=== PATIENT | male | born 1930 | race Caucasian/White ===

== ENCOUNTER 2017-05-15 08:19 | Day surgery (SDC) | payer BC, MEDICARE, OTHER ==
[2017-05-13 09:08] VITALS: BMI 22.3
[~2017-05-15 08:19] MED LIST: LACTATED RINGERS 1,000 ML IV SCH
[2017-05-15 10:29] VITALS: RESP 16; TEMP 97.1
[2017-05-15] MEDS ORDERED: LIDOCAINE 1% 20 ML VIAL (10MG/ML) FOR IV START INTRADERMA ONE (10:39)
[2017-05-15] MEDS ORDERED: PROPOFOL 10 MG/ML 20 ML VIAL IV ONE (10:52)
--- NOTE | 2017-05-15 11:09 | P.PCN ---
Date of Procedure: 05/15/17 Preoperative Diagnosis: Postoperative Diagnosis: Procedure(s) Performed: BRIEF HISTORY: Patient is a 87-year-old, pleasant, white male, scheduled for an upper endoscopy as a part of evaluation of epigastric and periumbilical abdominal pain, on-and-off for the last several months duration. He has symptoms almost on a daily basis but denies any nausea or vomiting. He denies any recent weight loss. He was given a trial of Zantac for one month with no help. He is hence scheduled for an upper endoscopy to evaluate further. PROCEDURE PERFORMED: Esophagogastroduodenoscopy with biopsy. PREOPERATIVE DIAGNOSIS: Persistent epigastric and periumbilical abdominal pain of few months duration. IV sedation per anesthesia. PROCEDURE: After informed consent was obtained, the patient was brought into the endoscopy unit. IV sedation was administered by Anesthesia under continuous monitoring. Initially the Olympus GIF-140 video endoscope was inserted into the mouth. Esophagus intubated without any difficulty. It was gradually advanced into the stomach and duodenum and carefully examined. The bulb of the duodenum appeared normal. Despite multiple times I was not able to advance the scope into the second part of the duodenum because of acute angle duration this area. The scope was removed and a pediatric upper endoscopy was introduced into the mouth and esophagus intubated without any difficulty and was gradually advanced into the duodenal bulb. Despite applying abdominal pressure I was not able to advance the scope into the second part of the duodenum once again because of angle duration this area. No obvious stricture identified. The scope at this time was withdrawn to the stomach, adequately insufflated with air, and upon careful examination, mucosa of the antrum, body, had mild diffuse gastritis and biopsies were done from this area. The cardia and the fundus appeared normal. The scope was then withdrawn into the esophagus. Small hiatal hernia noted. The GE junction was located at 37 cm from the incisors. The esophagus appeared normal. Biopsies were done from the distal esophagus. There were no erosions or ulcerations seen and the patient tolerated the procedure well. IMPRESSION: 1. Mild diffuse gastritis. 2. And hiatal hernia but no evidence of esophagitis. RECOMMENDATIONS: The findings of this examination were discussed with the patient as well as his family. He was advised to follow with the biopsy results. Implants: Indications for Procedure: Operative Findings: Description of Procedure:
[2017-05-15 11:36] VITALS: PULSE 50
[2017-05-15 11:52] VITALS: BP 104/70
== END 2017-05-15 11:58 | disposition home or self-care (01) ==
LOC: ORWHC2ENDO 08:19
PROVIDERS: ATTEND Internal Medicine Gastroenterology
DX: K29.50 Unspecified chronic gastritis without bleeding (principal); K21.0 Gastro-esophageal reflux disease with esophagitis; K44.9 Diaphragmatic hernia without obstruction or gangrene; I10 Essential (primary) hypertension; E78.5 Hyperlipidemia, unspecified; F39 Unspecified mood [affective] disorder; Z79.891 Long term (current) use of opiate analgesic; Z79.899 Other long term (current) drug therapy; Z87.891 Personal history of nicotine dependence
CPT/HCPCS: 88305; 88342; 43239; J2704

== ENCOUNTER 2017-09-19 12:08 | Emergency (ER) | payer MEDICARE ==
--- NOTE | 2017-09-19 13:30 | ED ---
General Adult HPI - General Chief complaint: Fall Stated complaint: Fall Time Seen by Provider: 09/19/17 12:50 Source: patient, RN notes reviewed Mode of arrival: wheelchair Limitations: no limitations - History of Present Illness Initial comments: 87-year-old male presents emergency Department with chief complaint of fall. Patient was at the grocery store and he lsot his balance in the parking lot and fell. Patient denies any lightheadedness or dizziness before the fall. Patient states he did hit his head and he does believe he passed out. Patient states he's continued to have right hip pain following this left hand pain and he's noticed some swelling and bruising to his left eye. Patient denies any use of blood thinners. Patient denies any headache any nausea vomiting. Patient denies any neck pain. There is concern due to the hip pain as well as swelling around left eye so they thought that he should be evaluated. Patient denies any recent fever, chills, shortness of breath, chest pain, back pain, abdominal pain, nausea vomiting, numbness or tingling, dysuria or hematuria, constipation or diarrhea, headaches or visual changes, or any other current symptoms. - Related Data Home Medications Medication Instructions Recorded Confirmed Acetaminophen-Codeine 300-30mg 1 tab PO Q6H PRN 01/02/16 09/19/17 [Tylenol #3] Mirtazapine [Remeron] 15 mg PO HS 09/19/17 09/19/17 Allergies Allergy/AdvReac Type Severity Reaction Status Date / Time No Known Allergies Allergy Verified 09/19/17 12:26 Review of Systems ROS Statement: Those systems with pertinent positive or pertinent negative responses have been documented in the HPI. ROS Other: All systems not noted in ROS Statement are negative. Past Medical History Past Medical History: Cancer, Hyperlipidemia, Hypertension, Prostate Disorder Additional Past Medical History / Comment(s): Paget's Disease. HX DIVERTICULITIS. SKIN CA. POOR APPETITE, ABD PAIN, DIARRHEA, WGT LOSS 6-8 WKS. History of Any Multi-Drug Resistant Organisms: None Reported Past Surgical History: Orthopedic Surgery, Prostate Surgery Additional Past Surgical History / Comment(s): ALVARO LOWER LEG RODS PLACED. COLONOSCOPY. Past Anesthesia/Blood Transfusion Reactions: No Reported Reaction Past Psychological History: Anxiety Smoking Status: Former smoker Past Alcohol Use History: None Reported Past Drug Use History: None Reported - Past Family History Mother Family Medical History: Cancer Sister(s) Family Medical History: Cancer General Exam Limitations: no limitations General appearance: alert, in no apparent distress Head exam: Present: normal inspection, other (left eye swelling over left eye with hematoma and some superficial lacerations noted.) Eye exam: Present: normal appearance, PERRL, EOMI, periorbital swelling (right eye). Absent: scleral icterus, conjunctival injection ENT exam: Present: normal exam, mucous membranes moist Neck exam: Present: normal inspection. Absent: tenderness, meningismus, lymphadenopathy Respiratory exam: Present: normal lung sounds bilaterally. Absent: respiratory distress, wheezes, rales, rhonchi, stridor Cardiovascular Exam: Present: regular rate, normal rhythm, normal heart sounds. Absent: systolic murmur, diastolic murmur, rubs, gallop, clicks Extremities exam: Present: normal inspection, full ROM, tenderness (Mildly tender to the left hand), normal capillary refill. Absent: pedal edema, joint swelling, calf tenderness Neurological exam: Present: alert, oriented X3 Psychiatric exam: Present: normal affect, normal mood Skin exam: Present: warm, dry, intact, normal color. Absent: rash Course Vital Signs 09/19/17 09/19/17 12:15 14:08 Temperature 97.0 F L 97.2 F L Pulse Rate 68 67 Respiratory 18 16 Rate Blood Pressure 151/88 142/78 O2 Sat by Pulse 96 94 L Oximetry - Reevaluation(s) Reevaluation #1: 09/19/17 15:10 Patient has developed a headache. At this time pain medication was given. Medical Decision Making - Medical Decision Making 87-year-old male presents for fall with head injury. At this time patient's CAT scan has been reviewed. At this time patient does have extensive orbital fractures. Due to head injury with loss of consciousness as well we will transfer [facility] for continued evaluation. This was discussed with the patient and family's on agreement this plan all questions have been answered. This time patient will be transferred. Dr. Hanks agrees with the transfer and does except. - Radiology Data Radiology results: report reviewed, image reviewed Disposition Clinical Impression: Fall, Left orbit fracture, Concussion with loss of consciousness, Contusion of right hip, Contusion of left hand Disposition: OTHER INSTITUTION NOT DEFINED Condition: Stable Referrals: Posadas,Asif, MD [Primary Care Provider] - 1-2 days - Out of Hospital Transfer - Req. Specs Out of Hospital Transfer - Requested Specifics: Other Emergency Center ([facility])
--- NOTE | 2017-09-19 13:49 | CT ---
EXAMINATION TYPE: CT brain cspine wo con, CT facial bones wo con DATE OF EXAM: 09/19/2017 COMPARISON: CT brain 06/27/2015 HISTORY: Fall, pain and swelling, open wound to Lt eye CT DLP: 1640.33 (accession [id number]), 497.92 (accession [id number]) mGycm Automated exposure control for dose reduction was used. TECHNIQUE: CT scan of the head, facial bones and cervical spine are performed without contrast. FINDINGS: There is no acute intracranial hemorrhage, mass effect, or midline shift identified. The ventricles and sulci are within normal limits in size. There is cephalohematoma over the left front al region. Depressed comminuted left frontal bone fractures are present extending into the orbital ro of, comminuted fragment present within the superior orbit on the left comes in close proximity to sup erior aspect of the globe, superior rectus muscle, there is some local hemorrhage present within the orbit. There is inflammatory change extending to the ostiomeatal unit on the left, bilateral maxillar y sinus fluid is present, the ostiomeatal unit on the right is patent.. Periventricular white matter shows low attenuation as on previous exam. Cervical spine is visualized in its entirety from C1 through upper thoracic levels and demonstrates s atisfactory alignment without evidence of acute fracture or dislocation. Prevertebral soft tissue ap pears within normal limits. There is multilevel spondylosis. Loss of disc height present at intervert ebral levels. Multilevel facet arthropathy and foraminal encroachment. Vascular calcifications are no [place] centrally. The C1-C2 articulation is unremarkable. IMPRESSION: 1. There is no acute fracture or dislocation evident in the cervical spine. 2. No acute intracranial hemorrhage, mass effect, or midline shift is seen. 3. Left frontal bone depressed fracture, orbital fractures at the orbital roof. Case discussed with Vitaliy Clement personally
--- NOTE | 2017-09-19 14:01 | XR ---
EXAMINATION TYPE: XR hand complete LT DATE OF EXAM: 09/19/2017 CLINICAL HISTORY: Fall injury with pain. TECHNIQUE: Frontal, lateral and oblique images of the left hand are obtained. COMPARISON: None. FINDINGS: Osseous structures are demineralized. There is no acute fracture or dislocation in the left hand. There is marked joint space loss radiocarpal articulation with mass effect or bone indentation in the distal radius. Scapholunate ligament tear is present and is proximal portions do not align. T here is proximal positioning of capitate relative to distal carpal row. There is mild to moderate shanti nt space loss and spurring throughout the phalanges. There is marked joint space loss fifth PIP joint . Overlying soft tissue is unremarkable. Lateral view is suboptimal due to demineralization to assess for lunate capitate relationship. IMPRESSION: There is no acute fracture or dislocation in the left hand. Demineralization and degener ative changes. 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 Correlate clinically.
--- NOTE | 2017-09-19 14:34 | XR ---
Right femur HISTORY: Trauma and pain, Paget's disease 2 views of the right femur on 4 images correlated to pelvis same date, left hip 10/30/2016 Coarsened trabecular pattern, coxa vera, postop changes noted. There is no acute fracture or dislocat ion. IMPRESSION: Findings compatible with patient's history of Paget's disease. No acute fracture or dislo cation.
--- NOTE | 2017-09-19 14:36 | XR ---
AP pelvis HISTORY: Trauma and pain Single frontal view of the pelvis correlated to right femur same date Findings of Paget's disease are noted within the bone, there is cortical thickening, coarsened trabec ular pattern. Lucencies present along the shafts of the femurs noted bilaterally appear chronic. Ther e may be avulsion hamstring musculature on the right with calcifications noted which also appear dictaphone operator uyen. Degenerative changes suspected within the lower lumbar spine. 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 IMPRESSION: Findings compatible with patient's history of Paget's disease. No acute fracture or dislo cation.
[2017-09-19] MEDS ORDERED: cefTRIAXone IN SWFI 1,000 MG/10 ML SYRINGE IVP ONE (15:00)
[2017-09-19] MEDS ORDERED: AMPICILLIN-SULBACTAM 3 GM in SODIUM CHLORIDE 0.9% 100 ML IVPB STA (15:03)
[2017-09-19] MEDS ORDERED: HYDROmorphone 1 MG/ML 1 ML SYRINGE IVP STA (15:03)
[2017-09-19 15:46] VITALS: BP 149/77; PULSE 77; RESP 18; TEMP 98.2
[2017-09-19 16:01] LABS: Basophils % (A) 1 %; CH 30.1; CHCM 32.3; Eosinophils # (A) 0.1 k/uL (0-0.7); Eosinophils % (A) 1 %; HCT 46.5 % (39.0-53.0); HDW 2.33; HGB 15.1 gm/dL (13.0-17.5); Luc # (Auto) 0.15; Luc % (Auto) 2; Lymphocytes # (A) 1.6 k/uL (1.0-4.8); Lymphocytes % (A) 16 %; MCH 30.4 pg (25.0-35.0); MCHC 32.4 g/dL (31.0-37.0); MCV 93.7 fL (80.0-100.0); Mean Platelet Volume 7.4; Monocytes # (A) 0.5 k/uL (0-1.0); Monocytes % (A) 5 %; Neutrophils # (A) 7.2 k/uL (1.3-7.7); Neutrophils % (A) 76 %; RBC 4.96 m/uL (4.30-5.90); RDW 14.2 % (11.5-15.5); WBC 9.6 k/uL (3.8-10.6); WBC (Perox) 9.52
[2017-09-19 16:02] LABS: ALT 33 U/L (21-72); AST 35 U/L (17-59); Alkaline Phosphatase 221 U/L (38-126); Anion Gap 9 mmol/L; Blood Urea Nitrogen 14 mg/dL (9-20); Carbon Dioxide 28 mmol/L (22-30); Chloride 104 mmol/L (98-107); Glucose 99 mg/dL (74-99); Non-African American GFR(MDRD) >60 (>60 ml/min/1.73 sqM); Potassium 4.2 mmol/L (3.5-5.1); Sodium 141 mmol/L (137-145); Total Bilirubin 0.6 mg/dL (0.2-1.3)
[2017-09-19 16:04] LABS: Partial Thromboplastin Time 24.8 sec (22.0-30.0); Prothrombin Time 10.5 sec (9.0-12.0)
== END 2017-09-19 16:12 | disposition short-term general hospital (02) ==
LOC: EC 12:08
DX: S06.0X9A Concussion with loss of consciousness of unspecified duration, initial encounter (principal); S02.82XA Fracture of other specified skull and facial bones, left side, initial encounter for closed fracture; S01.112A Laceration without foreign body of left eyelid and periocular area, initial encounter; S70.01XA Contusion of right hip, initial encounter; S60.222A Contusion of left hand, initial encounter; Z85.828 Personal history of other malignant neoplasm of skin; Z87.891 Personal history of nicotine dependence; Z79.899 Other long term (current) drug therapy; W01.198A Fall on same level from slipping, tripping and stumbling with subsequent striking against other object, initial encounter; Y92.481 Parking lot as the place of occurrence of the external cause
CPT/HCPCS: 36415; 80053; 85025; 85610; 85730; 72170; 73552; 73130; 72125; 70486; 70450; 99285; 96365; 96375; J1170; J0295

== ENCOUNTER 2019-10-25 08:22 | Inpatient (IN) | payer MEDICARE, OTHER ==
[2019-10-25] MEDS ORDERED: DIPH,PERTUS(ACELL)TETVAC-LF 0.5 ML VIAL IM ONE (08:43)
--- NOTE | 2019-10-25 08:45 | ED ---
General Adult HPI - General Chief complaint: Fall Stated complaint: FALL Time Seen by Provider: 10/25/19 08:24 Source: EMS Mode of arrival: EMS Limitations: physical limitation - History of Present Illness Initial comments: Dictation was produced using [employer] dictation software. please excuse any grammatical, word or spelling errors. Chief Complaint: 89-year-old male presents after fall. History of Present Illness: Patient is an 89-year-old male. He is a resident at [facility]. Patient accidentally rolled out of bed fell to the ground. Patient states he hit his head slightly on the way down. His main complaint today is right elbow pain. Patient denies being on any blood thinners. Patient denies any head pain or neck pain. Denies any chest pain or extremity pain. Patient does not know when his last tetanus shot was. The ROS documented in this emergency department record has been reviewed and confirmed by me. Those systems with pertinent positive or negative responses have been documented in the HPI. All other systems are other negative and/or noncontributory. PHYSICAL EXAM: General Impression: Alert and oriented x3, not in acute distress HEENT: Normocephalic atraumatic, extra-ocular movements intact, pupils equal and reactive to light bilaterally, mucous membranes moist. Cardiovascular: Heart regular rate and rhythm, S1&S2 audible, no murmurs, rubs or gallops Chest: Lungs clear to auscultation bilaterally, no rhonchi, no wheeze, no rales Abdomen: Bowel sounds present, abdomen soft, non-tender, non-distended, no organomegaly Musculoskeletal: Pulses present and equal in all extremities, no peripheral edema, all joints ranged with no complications. Small superficial abrasion to the posterior right elbow. No shortening extremity, minimal tenderness to the right hip Motor: no focal deficits noted Neurological: CN II-XII grossly intact, no focal motor or sensory deficits noted Skin: Intact with no visualized rashes Psych: Normal affect and mood ED course: 89-year-old male presents after fall. Signs upon arrival are within acceptable limits. Well-appearing on physical examination. No signs of serious traumatic injury.Laboratory evaluation obtained. CBC, coag panel, metabolic panel is unremarkable. Medications were reviewed. Patient is not on any blood thinners. Imaging studies were obtained. Elbow x-ray chest x-ray pelvis x-ray is unremarkable. Pelvis x-ray shows acute nondisplaced fractures of the superior pubic rami bilaterally. Patient denies any pain at rest however when flexing the right hip patient has some pain. Patient is normally ambulatory. Given patient's degree of symptoms we will have patient admitted for orthopedic surgery evaluation. Discussed patient case with chani bejarano. Melissa reviewed patient's case and agrees to take over patient's care. Medicine consulted. Physical therapy consult it. EKG interpretation: Ventricular rate 70, normal sinus rhythm, VA interval 150, QS 92, QTc 4:30. No VA prolongation, no QTC prolongation, no ST or T-wave changes noted. No old EKG for comparison. Overall, this EKG is unremarkable - Related Data Home Medications Medication Instructions Recorded Confirmed Acetaminophen-Codeine 300-30mg 2 tab PO BID PRN 01/02/16 10/25/19 [Tylenol #3] Mirtazapine [Remeron] 15 mg PO HS 09/19/17 10/25/19 Lisinopril [Zestril] 10 mg PO BID 10/25/19 10/25/19 Allergies Allergy/AdvReac Type Severity Reaction Status Date / Time No Known Allergies Allergy Verified 10/25/19 10:16 Review of Systems ROS Statement: Those systems with pertinent positive or pertinent negative responses have been documented in the HPI. ROS Other: All systems not noted in ROS Statement are negative. Past Medical History Past Medical History: Cancer, Hyperlipidemia, Hypertension, Prostate Disorder Additional Past Medical History / Comment(s): Paget's Disease. HX DIVERTICULITIS. SKIN CA. POOR APPETITE, ABD PAIN, DIARRHEA, WGT LOSS 6-8 WKS. History of Any Multi-Drug Resistant Organisms: None Reported Past Surgical History: Orthopedic Surgery, Prostate Surgery Additional Past Surgical History / Comment(s): ALVARO LOWER LEG RODS PLACED. COLONOSCOPY. Past Anesthesia/Blood Transfusion Reactions: No Reported Reaction Past Psychological History: Anxiety Smoking Status: Former smoker Past Alcohol Use History: None Reported Past Drug Use History: None Reported - Past Family History Mother Family Medical History: Cancer Sister(s) Family Medical History: Cancer General Exam Limitations: physical limitation Course Vital Signs 10/25/19 10/25/19 08:23 09:19 Temperature 98.0 F Pulse Rate 88 76 Respiratory 16 16 Rate Blood Pressure 159/101 142/67 O2 Sat by Pulse 99 99 Oximetry Medical Decision Making - Lab Data Result diagrams: 10/25/19 08:39 10/25/19 08:39 Lab Results 10/25/19 10/25/19 10/25/19 Range/Units 08:39 08:39 08:39 WBC 9.6 (3.8-10.6) k/uL RBC 4.55 (4.30-5.90) m/uL Hgb 13.8 (13.0-17.5) gm/dL Hct 42.2 (39.0-53.0) % MCV 92.8 (80.0-100.0) fL MCH 30.3 (25.0-35.0) pg MCHC 32.7 (31.0-37.0) g/dL RDW 13.1 (11.5-15.5) % Plt Count 266 (150-450) k/uL Neutrophils % 53 % Lymphocytes % 31 % Monocytes % 7 % Eosinophils % 6 % Basophils % 0 % Neutrophils # 5.1 (1.3-7.7) k/uL Lymphocytes # 3.0 (1.0-4.8) k/uL Monocytes # 0.7 (0-1.0) k/uL Eosinophils # 0.5 (0-0.7) k/uL Basophils # 0.0 (0-0.2) k/uL PT 9.8 (9.0-12.0) sec INR 0.9 (<1.2) APTT 24.3 (22.0-30.0) sec Sodium 141 (137-145) mmol/L Potassium 4.4 (3.5-5.1) mmol/L Chloride 107 (98-107) mmol/L Carbon Dioxide 26 (22-30) mmol/L Anion Gap 8 mmol/L BUN 20 (9-20) mg/dL Creatinine 0.91 (0.66-1.25) mg/dL Est GFR (CKD-EPI)AfAm 87 (>60 ml/min/1.73 sqM) Est GFR (CKD-EPI)NonAf 75 (>60 ml/min/1.73 sqM) Glucose 118 H (74-99) mg/dL Calcium 10.2 (8.4-10.2) mg/dL Total Bilirubin 0.6 (0.2-1.3) mg/dL AST 39 (17-59) U/L ALT 21 (4-49) U/L Alkaline Phosphatase 267 H (38-126) U/L Total Protein 7.8 (6.3-8.2) g/dL Albumin 4.2 (3.5-5.0) g/dL Disposition Clinical Impression: Fall, Pelvic fracture Disposition: ADMITTED IP TO THIS [facility] Condition: Fair Referrals: Asif Posadas MD [Primary Care Provider] - 1-2 days Decision Time: 10:18
[2019-10-25 08:50] LABS: Basophils % (A) 0 %; Eosinophils # (A) 0.5 k/uL (0-0.7); Eosinophils % (A) 6 %; HCT 42.2 % (39.0-53.0); HGB 13.8 gm/dL (13.0-17.5); Lymphocytes % (A) 31 %; MCH 30.3 pg (25.0-35.0); MCHC 32.7 g/dL (31.0-37.0); MCV 92.8 fL (80.0-100.0); Mean Platelet Volume 7.5; Monocytes # (A) 0.7 k/uL (0-1.0); Monocytes % (A) 7 %; Neutrophils # (A) 5.1 k/uL (1.3-7.7); Neutrophils % (A) 53 %; Platelet Count 266 k/uL (150-450); RBC 4.55 m/uL (4.30-5.90); RDW 13.1 % (11.5-15.5); WBC 9.6 k/uL (3.8-10.6)
[2019-10-25 08:58] LABS: INR 0.9 (<1.2); Partial Thromboplastin Time 24.3 sec (22.0-30.0); Prothrombin Time 9.8 sec (9.0-12.0)
[2019-10-25 09:14] LABS: Albumin 4.2 g/dL (3.5-5.0); Calcium 10.2 mg/dL (8.4-10.2); Potassium 4.4 mmol/L (3.5-5.1); Total Bilirubin 0.6 mg/dL (0.2-1.3); Total Protein 7.8 g/dL (6.3-8.2)
--- NOTE | 2019-10-25 09:36 | CT ---
EXAMINATION TYPE: CT brain matildeine wo con DATE OF EXAM: 10/25/2019 COMPARISON: Previous study dated 09/19/2017. HISTORY: Fall CT DLP: 1234.9 mGycm Automated exposure control for dose reduction was used. TECHNIQUE: CT scan of the head and cervical spine are performed without contrast. FINDINGS: BRAIN: There are generalized changes of sulcal prominence and ventriculomegaly, compatible with atrop hic change. There is diffuse periventricular white matter lucency, compatible with small vessel ische eliecer change. No acute focal lesion, mass effect or midline shift is seen. I do not see evidence of int racranial blood. There is mucoperiosteal thickening involving the ethmoid sinuses bilaterally. The mastoids are clear. The bony calvarium is intact. IMPRESSION: 1. NO ACUTE INTRACRANIAL ABNORMALITY. 2. MODERATE DEGENERATIVE CHANGE. 3. CHRONIC ETHMOIDAL SINUS MUCOSAL DISEASE. CERVICAL SPINE: Visualized portions of the lungs are clear. Prevertebral soft tissues are normal. Vertebral body height and alignment are maintained. Atlantoaxial relationships are normal. There is d iffuse degenerative disc disease, hypertrophic spondylosis and uncovertebral joint disease with relat radha sparing C2-3 and C3-4. There is facet arthropathy bilaterally at C2-3, C3-4 and C4-5. No definite protrusion is seen. There is a mildly displaced fracture of the left second rib laterally. No other acute rib fractures are seen. No spinal fracture is seen. IMPRESSION: 1. MINIMALLY DISPLACED FRACTURE OF THE LEFT SECOND RIB LATERALLY. 2. NO OTHER FRACTURE OF THE CERVICAL SPINE. 3. DEGENERATIVE CHANGE. This report was phoned to Dr. Mccullough in the ER at time of reporting.
--- NOTE | 2019-10-25 09:39 | XR ---
EXAMINATION TYPE: XR pelvis AP view , 2 VIEWS DATE OF EXAM ORDERED: 10/25/2019 HISTORY: fall. COMPARISON: None. FINDINGS: There is been intramedullary rolando fixation of both femurs. There is evidence of Paget's dis ease bilaterally worse on the left than the right. There is a minimally displaced fracture of the sup erior pubic ramus on the right. A second fracture is noted through the superior pubic ramus on the le ft. No definite additional fractures are seen. IMPRESSION: 1. ACUTE, NONDISPLACED FRACTURES OF THE SUPERIOR PUBIC RAMI BILATERALLY. 2. EVIDENCE OF PAGETOID CHANGE. 3. POSTSURGICAL CHANGE. CODE A: INITIAL ENCOUNTER FOR CLOSED FRACTURE.
--- NOTE | 2019-10-25 09:43 | XR ---
EXAMINATION TYPE: XR chest 1V portable DATE OF EXAM: 10/25/2019 HISTORY: fall. REFERENCE: NONE. FINDINGS: Lung volumes are prominent. Heart size upper limits of normal. The lungs are clear. Pleural spaces are clear. IMPRESSION: 1. MILD CARDIOMEGALY. 2. PLEASE CORRELATE FOR COPD.
--- NOTE | 2019-10-25 09:44 | XR ---
EXAMINATION TYPE: XR elbow complete RT , 3 VIEWS DATE OF EXAM ORDERED: 10/25/2019 HISTORY: fall. COMPARISON: None. FINDINGS: No fracture, dislocation or elbow joint effusion is seen. There is a prominent olecranon s pur. IMPRESSION: NO ACUTE OSSEOUS LESION.
[2019-10-25] MEDS ORDERED: ONDANSETRON 4 MG/2 ML VIAL IVP PRN (10:15)
[2019-10-25] MEDS ORDERED: NALOXONE 0.4 MG/ML 1 ML VIAL IV PRN (10:15)
[2019-10-25] MEDS: KETOROLAC 30 MG/ML 1 ML VIAL IVP PRN ×2 (10:30→16:14)
[2019-10-25] MEDS: SODIUM CHLORIDE 0.9% 1,000 ML IV SCH ×2 (10:30→13:50)
[2019-10-25] MEDS: ACETAMINOPHEN TAB 325 MG TAB PO PRN (11:29)
--- NOTE | 2019-10-25 16:15 | P.HPOR ---
History of Present Illness H&P Date: 10/25/19 Chief Complaint: Bilateral superior pubic rami fracture Patient is an 89-year-old male who was brought to [facility] today after falling out of bed. Patient does state at [facility] full-time, he has a home care agency that spends about 4 hours a day with him. Patient is rather independent, he utilizes a walker with ambulation. Upon arrival to the hospital today, imaging and lab tests were done. Images demonstrated bilateral superior pubic rami fracture. It also demonstrated previous hardware in the bilateral femurs. Patient did hit his head during the fall, computed tomography scan was negative. At bedside patient states he has no other orthopedic complaints besides some low back pain. He notes most of discomfort when ambulating. Currently denies any chest pain, shortness of breath, fever or chills, abdominal discomfort, loss of bowel or bladder, lower extremity paresthesias. Review of Systems Constitutional: Reports as per HPI Past Medical History Past Medical History: Cancer, Hyperlipidemia, Hypertension, Prostate Disorder Additional Past Medical History / Comment(s): Paget's Disease. HX DIVERTICULITIS. SKIN CA. Fell in parking lot and had hit head, in [employer] for 30days two years ago. History of Any Multi-Drug Resistant Organisms: None Reported Past Surgical History: Orthopedic Surgery, Prostate Surgery Additional Past Surgical History / Comment(s): ALVARO LOWER LEG RODS PLACED. COLONOSCOPY. Past Anesthesia/Blood Transfusion Reactions: No Reported Reaction Past Psychological History: Anxiety Smoking Status: Former smoker Past Alcohol Use History: None Reported Additional Past Alcohol Use History / Comment(s): SMOKED 20 YEARS EST, MANY YEARS AGO, LATER SMOKED PIPE Past Drug Use History: None Reported - Past Family History Mother Family Medical History: Cancer Sister(s) Family Medical History: Cancer Medications and Allergies Home Medications Medication Instructions Recorded Confirmed Type Acetaminophen-Codeine 300-30mg 2 tab PO BID PRN 01/02/16 10/25/19 History [Tylenol #3] Mirtazapine [Remeron] 15 mg PO HS 09/19/17 10/25/19 History Lisinopril [Zestril] 10 mg PO BID 10/25/19 10/25/19 History Allergies Allergy/AdvReac Type Severity Reaction Status Date / Time No Known Allergies Allergy Verified 10/25/19 10:16 Physical Examination Lower extremity: No obvious open sores or lesions present throughout the extremities, bilateral surgical incisions noted on the lateral aspect of the upper legs are well-healed No significant areas of soft tissue swelling or erythema Logroll maneuver the bilateral legs reproduces minimal discomfort No tenderness with palpation throughout the knees, his range of motion is intact both passively and actively Plantar flexion, dorsiflexion, EHL, FHL are intact bilaterally Sensory exam to light touch throughout his extremities is intact, dorsal pedis pulse bilaterally is 2+ Palpation of the lower lumbar spine there is some tenderness over the spinous processes some paravertebral muscles, no obvious step-off is appreciated. No skin changes noted throughout the lower back Results - Labs Labs: Abnormal Lab Results - Last 24 Hours (Table) 10/25/19 Range/Units 08:39 Glucose 118 H (74-99) mg/dL Alkaline Phosphatase 267 H (38-126) U/L H & H 10/25/19 Range/Units 08:39 Hgb 13.8 (13.0-17.5) gm/dL Hct 42.2 (39.0-53.0) % Coagulation 10/25/19 Range/Units 08:39 INR 0.9 (<1.2) Result Diagrams: 10/25/19 08:39 10/25/19 08:39 Assessment and Plan Plan: Imaging: X-rays of the pelvis demonstrates a nondisplaced bilateral superior pubic rami fractures. Evidence of previous hardware involving the bilateral hips, it appears stable. Elbow x-rays were negative for any acute fractures or dislocations. I did order a series of lumbar x-rays to be done, awaiting results Assessment: 1. Bilateral nondisplaced superior pubic rami fractures 2. Status post fall from bed 3. Other medical comorbidities Plan: I was able to discuss the case, including both physical exam findings and imaging studies my attending Dr. Romeo. Recommend conservative management at this time, no surgical intervention. Weight-bear as tolerated, utilize walker at all times Physical therapy evaluation to include walker ambulation X-rays have been ordered of the lumbar spine Pain control, low-dose or medication as needed GI and DVT prophylaxis per medical recommendation Medical recommendations Patient may need rehab placement, considering home physical therapy and 24-hour care if he can return to [facility]. We'll discuss this with social work and case management tomorrow. Time with Patient: Less than 30
[2019-10-25] MEDS: traMADol 50 MG TAB PO SCH ×2 (17:05→21:53)
--- NOTE | 2019-10-25 17:26 | XR ---
EXAMINATION TYPE: XR lumbar spine 2 or 3V DATE OF EXAM: 10/25/2019 COMPARISON: NONE HISTORY: Low back pain TECHNIQUE: 4 views FINDINGS: There is osteopenia. There is minimal anterior subluxation of L5 in relation S1 of 5 mm. Th ere is biconcave deformity of L3. This mild loss of height of L3 and L5 up to 20%. There is also slig ht anterior wedging of L1 10%. Posterior elements are intact. Sacroiliac joints are intact. IMPRESSION: Multiple mild compression fractures. Compression fractures appear not significantly diffe rent than old CT scan of 01/02/2016. No definite acute fracture.
--- NOTE | 2019-10-25 17:27 | P.CONS ---
History of Present Illness - Reason for Consult Consult date: 10/25/19 medical management Requesting physician: Marcos Mackay - Chief Complaint hip pain - History of Present Illness 89-year-old male with PMH of hypertension, dyslipidemia, Paget's disease presents the ED after mechanical fall. Patient states that he rolled off his bed. He denies any loss of consciousness. Patient does report hitting his head during the fall. Patient states that he lives at [facility] full-time with caregivers that attend to him 4 hours a day.[facility] has been consulted for medical management of this patient.in the ED, he underwent extensive evaluation. CT head was negative. Pelvic x-ray showed bilateral rami fractures. Patient reports no current pain. He denies any headache, lower extremity edema, nausea or vomiting, fever chills, cough, chest pain, shortness of breath, palpitations, changes in urination or bowel habits. No changes in appetite or weight. Patient denies any dizziness, numbness/weakness/tingling of the extremities. Review of Systems Pertinent positives and negatives as discussed in HPI, a complete review of systems was performed and all other systems are negative. Past Medical History Past Medical History: Cancer, Hyperlipidemia, Hypertension, Prostate Disorder Additional Past Medical History / Comment(s): Paget's Disease. HX DIVERTICULITIS. SKIN CA. Fell in parking lot and had hit head, in [employer] for 30days two years ago. History of Any Multi-Drug Resistant Organisms: None Reported Past Surgical History: Orthopedic Surgery, Prostate Surgery Additional Past Surgical History / Comment(s): ALVARO LOWER LEG RODS PLACED. COLONOSCOPY. Past Anesthesia/Blood Transfusion Reactions: No Reported Reaction Past Psychological History: Anxiety Smoking Status: Former smoker Past Alcohol Use History: None Reported Additional Past Alcohol Use History / Comment(s): SMOKED 20 YEARS EST, MANY YEARS AGO, LATER SMOKED PIPE Past Drug Use History: None Reported - Past Family History Mother Family Medical History: Cancer Sister(s) Family Medical History: Cancer Medications and Allergies Home Medications Medication Instructions Recorded Confirmed Type Acetaminophen-Codeine 300-30mg 2 tab PO BID PRN 01/02/16 10/25/19 History [Tylenol #3] Mirtazapine [Remeron] 15 mg PO HS 09/19/17 10/25/19 History Lisinopril [Zestril] 10 mg PO BID 10/25/19 10/25/19 History Allergies Allergy/AdvReac Type Severity Reaction Status Date / Time No Known Allergies Allergy Verified 10/25/19 10:16 Physical Exam Vitals: Vital Signs Temp Pulse Pulse Resp BP BP Pulse Ox 10/25/19 13:53 97.7 F 82 16 132/85 92 L 10/25/19 11:08 98.1 F 74 16 152/89 93 L 10/25/19 10:32 76 16 153/86 99 10/25/19 09:19 76 16 142/67 99 10/25/19 08:23 98.0 F 88 16 159/101 99 Intake and Output 10/25/19 10/25/19 10/25/19 06:59 14:59 22:59 Intake Total 800 860 Output Total 250 Balance 800 610 Intake: Oral 800 860 Output: Urine 250 Other: Voiding Method Urinal # Voids 1 Weight 68.039 kg General: [non toxic], [no distress], [appears at stated age] Derm: [warm], [dry] Head: [atraumatic], [normocephalic], [symmetric] Eyes: [EOMI], [no lid lag], [anicteric sclera] Mouth: [no lip lesion], [mucus membranes moist] Cardiovascular: [S1S2 reg], [no murmur], [positive DP pulse bilateral], Lungs: [decreased breath sounds bilateral], [no rhonchi, no rales] , [no accessory muscle use] Abdominal: [soft], [ nontender to palpation], [no guarding], [no appreciable organomegaly] Ext: [no gross muscle atrophy], [no edema], [no contractures], [limited range of motion of bilateral hips due to pain] Neuro: [ CN II-XI grossly intact], [lower extremity 4 out of 5 strength bilaterally with sensation intact to touch] Psych: [Alert], [oriented], [appropriate affect] Results CBC & Chem 7: 10/25/19 08:39 10/25/19 08:39 Labs: Abnormal Lab Results - Last 24 Hours (Table) 10/25/19 Range/Units 08:39 Glucose 118 H (74-99) mg/dL Alkaline Phosphatase 267 H (38-126) U/L Assessment and Plan Assessment: Hypertension Dyslipidemia Bilateral hip pain diagnosed with bilateral superior pubic rami fractures Elevated alkaline phosphatase likely related to Paget's disease BP 132/85. Plans: Resume lisinopril. Monitor vitals, adjust medications as necessary. Plans: Low-fat diet. As seen on hip x-ray. As per orthopedic surgery, no plans on surgical intervention. Plans: Follow PT and OT recommendations. Social work on board for rehab placement. Alkaline phosphatase 267. Likely related to Paget's disease. Plans: Nothing further to do. DVT prophylaxis: [SCD] Discussed with: [patient, daughter and size mixer] Anticipated discharge: [1-2 days] Anticipated discharge place: [rehab] A total of [45] minutes was spent on the care of this complex patient more than 50% of the time was spent in counseling and care coordination. Patient names his daughter decision maker in the case that he can't make decisions for himself. Patient reiterates wanting to remain no code. His daughter was there during this conversation.
[2019-10-25] MEDS ORDERED: MIRTAZAPINE 15 MG TAB PO SCH (21:00)
[2019-10-25] MEDS: TEMAZEPAM 15 MG CAP PO SCH (21:53)
[2019-10-25] MEDS: LISINOPRIL 10 MG TAB PO SCH (21:55)
[2019-10-26] MEDS: traMADol 50 MG TAB PO SCH ×4 (08:41→21:55)
[2019-10-26] MEDS: LISINOPRIL 10 MG TAB PO SCH ×2 (08:41→21:56)
[2019-10-26] MEDS: ACETAMINOPHEN TAB 325 MG TAB PO PRN (10:49)
--- NOTE | 2019-10-26 12:28 | P.PN ---
Subjective Progress Note Date: 10/26/19 patient seen and examined at bedside, apparently was pretty anxious last evening, now sitting up in the chair. the patient reporting pain by report is controlled with tramadol and Tylenol. Objective - Vital Signs Vital signs: Vital Signs Temp 97.5 F L 10/26/19 07:00 Pulse 97 10/26/19 07:00 Resp 18 10/26/19 00:08 BP 152/88 10/26/19 07:00 Pulse Ox 93 L 10/26/19 00:08 Intake & Output 10/25/19 10/26/19 10/26/19 18:59 06:59 18:59 Intake Total 2200 1960 200 Output Total 600 600 125 Balance 1600 1360 75 Weight 68.039 kg Intake: Oral 2200 1960 200 Output: Urine 600 600 125 Other: Voiding Method Urinal Urinal # Voids 1 1 - Exam Constitutional: No acute distress, conversant, pleasant Eyes: Anicteric sclerae, moist conjunctiva, no lid-lag, PERRLA ENMT: NC/AT,Oropharynx clear, no erythema, exudates Neck:Supple, FROM, no masses, or JVD, No carotid bruits; No thyromegaly Lungs: Clear to auscultation, Clear to percussion, Normal respiratory effort, no accessory muscle use Cardiovascular: Heart regular in rate and rhythm, No murmurs, gallops, or rubs no peripheral edema Abdominal: Soft Nontender, nom distended, no guarding, no rebound or rigidity, Normoactive bowel sounds No hepatomegaly, No splenomegaly, No palpable mass No abdominal wall hernia noted Skin: Normal temperature, tone, texture, turgor, No induration No subcutaneous nodules, No rash, lesions, No ulcers Extremities: minimal discomfort on log roll Psychiatric: Alert and oriented to person, place and time, Appropriate affect Intact judgement Neuro: Muscles Strength 5/5 in all 4 extremities, Sensation to light touch grossly present throughout, Cranial nerves II-XII grossly intact. No focal sensory deficits - Labs CBC & Chem 7: 10/25/19 08:39 10/25/19 08:39 Assessment and Plan Assessment: Hypertension * Blood pressure stable slightly elevated likely secondary to pain * Continue current regimen Dyslipidemia * continue home regimen Bilateral hip pain diagnosed with bilateral superior pubic rami fractures * continue conservative management per orthopedic recommendations Elevated alkaline phosphatase likely related to Paget's disease disposition * Patient medically stable sign off awaiting placement
--- NOTE | 2019-10-26 15:02 | P.PN ---
Subjective Progress Note Date: 10/26/19 Principal diagnosis: Bilateral superior pubic rami fracture Patient evaluated at bedside, he is resting comfortably. The pain is better today. He is ambulated minimally with therapy. Denies any chest pain or shortness of breath. Objective - Vital Signs Vital signs: Vital Signs Temp 97.5 F L 10/26/19 07:00 Pulse 97 10/26/19 07:00 Resp 18 10/26/19 00:08 BP 152/88 10/26/19 07:00 Pulse Ox 93 L 10/26/19 00:08 Intake & Output 10/25/19 10/26/19 10/26/19 18:59 06:59 18:59 Intake Total 2200 1960 400 Output Total 600 600 125 Balance 1600 1360 275 Weight 68.039 kg Intake: Oral 2200 1960 400 Output: Urine 600 600 125 Other: Voiding Method Urinal Urinal # Voids 1 1 - Exam Orthopedic exam: Physical exam is unchanged since initial evaluation - Labs CBC & Chem 7: 10/25/19 08:39 10/25/19 08:39 Assessment and Plan Plan: Imaging: X-ray of the lumbar spine demonstrated no acute processes. Assessment: 1. Bilateral nondisplaced superior pubic rami fractures 2. Status post fall from bed 3. Other medical comorbidities Plan: Weight-bear as tolerated, utilize walker at all times Physical therapy evaluation to include walker ambulation Pain control, low-dose or medication as needed GI and DVT prophylaxis per medical recommendation Medical recommendations Plan for discharge to rehab on Saturday Time with Patient: Less than 30
[2019-10-26] MEDS: MIRTAZAPINE 15 MG TAB PO SCH (17:57)
[2019-10-26] MEDS: TEMAZEPAM 15 MG CAP PO SCH (21:56)
[2019-10-27] MEDS: ACETAMINOPHEN TAB 325 MG TAB PO PRN (05:17)
[2019-10-27] MEDS: traMADol 50 MG TAB PO SCH ×4 (08:56→20:53)
[2019-10-27] MEDS: LISINOPRIL 10 MG TAB PO SCH ×2 (08:58→20:53)
[2019-10-27] MEDS: MIRTAZAPINE 15 MG TAB PO SCH (09:00)
[2019-10-27] MEDS: SODIUM CHLORIDE 0.9% 1,000 ML IV SCH (10:09)
--- NOTE | 2019-10-27 13:23 | P.PN ---
Subjective Progress Note Date: 10/27/19 Principal diagnosis: Bilateral superior pubic rami fracture Patient evaluated at bedside, he is resting comfortably. The pain is better today. Denies any chest pain or shortness of breath. Objective - Vital Signs Vital signs: Vital Signs Temp 97.8 F 10/27/19 07:00 Pulse 75 10/27/19 07:00 Resp 12 10/27/19 07:00 BP 136/82 10/27/19 07:00 Pulse Ox 94 L 10/27/19 07:00 Intake & Output 10/26/19 10/27/19 10/27/19 18:59 06:59 18:59 Intake Total 600 Output Total 125 Balance 475 Intake: Oral 600 Output: Urine 125 Other: Voiding Method Urinal # Voids 3 - Exam Orthopedic exam: Physical exam is unchanged since initial evaluation - Labs CBC & Chem 7: 10/25/19 08:39 10/25/19 08:39 Assessment and Plan Plan: Imaging: X-ray of the lumbar spine demonstrated no acute processes. Assessment: 1. Bilateral nondisplaced superior pubic rami fractures 2. Status post fall from bed 3. Other medical comorbidities Plan: Weight-bear as tolerated, utilize walker at all times Physical therapy evaluation to include walker ambulation Pain control, low-dose or medication as needed GI and DVT prophylaxis per medical recommendation Medical recommendations Plan for discharge to rehab tomorrow Time with Patient: Less than 30
[2019-10-27] MEDS ORDERED: MIRTAZAPINE 15 MG TAB PO SCH (17:00)
[2019-10-27] MEDS: TEMAZEPAM 15 MG CAP PO SCH (20:54)
[2019-10-28 07:56] VITALS: BP 158/88; PULSE 76; RESP 12; TEMP 98
[2019-10-28] MEDS: LISINOPRIL 10 MG TAB PO SCH (08:46)
[2019-10-28] MEDS: traMADol 50 MG TAB PO SCH ×2 (08:46→12:57)
[2019-10-28] MEDS: SODIUM CHLORIDE 0.9% 1,000 ML IV SCH (10:22)
--- NOTE | 2019-10-28 10:36 | P.PN ---
Subjective Progress Note Date: 10/28/19 Principal diagnosis: Bilateral superior pubic rami fracture Patient evaluated at bedside, he is resting comfortably. The pain is better today. Denies any chest pain or shortness of breath. Objective - Vital Signs Vital signs: Vital Signs Temp 98 F 10/28/19 07:00 Pulse 76 10/28/19 07:00 Resp 12 10/28/19 07:00 BP 158/88 10/28/19 07:00 Pulse Ox 97 10/28/19 07:00 Intake & Output 10/27/19 10/28/19 10/28/19 18:59 06:59 18:59 Output Total 200 Balance -200 Output: Urine 200 Other: Voiding Method Urinal Urinal # Voids 2 1 - Exam Orthopedic exam: Physical exam is unchanged since initial evaluation - Labs CBC & Chem 7: 10/25/19 08:39 10/25/19 08:39 Assessment and Plan Plan: Imaging: X-ray of the lumbar spine demonstrated no acute processes. Assessment: 1. Bilateral nondisplaced superior pubic rami fractures 2. Status post fall from bed 3. Other medical comorbidities Plan: Weight-bear as tolerated, utilize walker at all times Physical therapy evaluation to include walker ambulation Pain control, low-dose or medication as needed GI and DVT prophylaxis per medical recommendation Medical recommendations Plan for discharge to rehab today Time with Patient: Less than 30
--- NOTE | 2019-10-28 10:41 | P.DS ---
Providers Date of admission: 10/25/19 10:16 Expected date of discharge: 10/28/19 Attending physician: Saad Romeo Consults: 10/25/19 10:16 Consult Physician Routine Consulting Provider: Ron Tristan Consult Reason/Comments: medical consult Do you want consulting provider notified?: Yes Primary care physician: [facility] Course: Date of admission: 10/25/2019 Date of discharge: 10/28/2019 Admission diagnosis: bilateral superior pubic rami fractures Discharge diagnosis: same Attending physician: Dr. Romeo Surgical procedures: none Brief history: Patient is a 81-year-old male who presented to [facility] on 10/25/2019 after a fall at home.upon arrival to the hospital, it was determined he had a lateral superior pubic rami fractures. He was admitted under orthopedic care for treatment, internal medicine was also consulted for medical management. Hospital course: Patient's orthopeidc and medical care was provided daily. Patient had daily laboratory tests performed for evaluation of overall blood counts. Patient had daily physical therapy to include strengthening range of motion as well as education with walker ambulation. Patient was noted to have a relatively uneventful postoperative course. Discharge condition/disposition: Patient will be discharged rehab in stable condition. Discharge medications: Instructions are given on resumption of patient's normal daily medications per primary care recommendation, in addition patient will be prescribed tramadol 50 mg. Discharge instructions: 1. Weight-bear [as tolerated] with walker / cane until follow-up. 2. Ice and elevate when necessary. Do not exceed 20 minutes per hour with ice pack. 3. Follow up in office at 2 weeks postop with Faisal Torres PA-C 4. Follow up with your primary care doctor 7-10 days after discharge. 5. Contact [facility] with any questions, . Patient Condition at Discharge: Fair Plan - Discharge Summary Discharge Rx Participant: Yes New Discharge Prescriptions: New Acetaminophen-Codeine 300-30mg [Tylenol w/codeine #3] 1 - 2 tab PO Q4-6H PRN #40 tablet PRN Reason: Pain traMADol HCl [Ultram] 50 mg PO Q6H PRN #28 tab PRN Reason: Pain Continue Mirtazapine [Remeron] 15 mg PO HS Lisinopril [Zestril] 10 mg PO BID No Action Acetaminophen-Codeine 300-30mg [Tylenol #3] 2 tab PO BID PRN PRN Reason: Pain Discharge Medication List Acetaminophen-Codeine 300-30mg [Tylenol #3] 2 tab PO BID PRN 01/02/16 [History] Mirtazapine [Remeron] 15 mg PO HS 09/19/17 [History] Lisinopril [Zestril] 10 mg PO BID 10/25/19 [History] Acetaminophen-Codeine 300-30mg [Tylenol w/codeine #3] 1 - 2 tab PO Q4-6H PRN #40 tablet 10/28/19 [Rx] traMADol HCl [Ultram] 50 mg PO Q6H PRN #28 tab 10/28/19 [Rx] Follow up Appointment(s)/Referral(s): Asif Posadas MD [Primary Care Provider] - 1-2 days Manuel Grimes, [NON-STAFF] - As Needed Saad Romeo MD [STAFF PHYSICIAN] - 3 Weeks Activity/Diet/Wound Care/Special Instructions: Orthopedic discharge instructions: 1. Weight-bear as tolerated, utilize a walker or crutches at all times 2. Pain medications needed 3. Plan for follow-up at [facility] in 3 weeks Discharge Disposition: TRANSFER TO SNF/ECF
--- NOTE | 2019-10-30 01:31 | CDI ---
Documentation Clarification Form Date: 10/30/19 From: Behzad Gotti Phone: If you have a question about this query, please contact Lisset Pollock, Clinical Laboratory Technician at [phone] between 8am and 5pm. Admit Date: 10/25/19 Discharge Date: 10/28/19 Patient Name: Bharat Joy Visit Number: [id number] ATTENTION: The Clinical Documentation Specialists (CDI) and [facility] Coding Staff appreciate your assistance in clarifying documentation. Please respond to the clarification below the line at the bottom and electronically sign. The CDI & [facility] Coding staff will review the response and follow-up if needed. Please note: Queries are made part of the Legal Health Record. If you have any questions, please contact the author of this message via ITS. Dear Saad Hendrickson., Patient is an 89-year-old male who was brought to [facility] today after falling out of bed.Patient has been diagnosed with a Bilateral pubis ramus fractures. Patient history/risk factors: osteopenia, Compression fractures in lumbar region, 89 years old. Clinical Indicators: Lumbar X-ray shows There is osteopenia.There is minimal anterior subluxation of L5 in relation S1 of 5 mm. There is biconcave deformity of L3.This mild loss of height of L3 and L5 up to 20%. Treatment: Weight-bear as tolerated, utilize walker at all times, Pain control, low-dose or medication as needed In your professional opinion, please specify Bilateral Pubis ramus fracture is? Acute Fracture due to fall Pathological fracture due to underlying condition (if known): Osteopenia Age related Other (please specify): Unable to determine acute fracture due to fall MTDD
== END 2019-10-28 15:44 | DRG 536 ==
LOC: EC 08:22 → 4SSUR 10:16
PROVIDERS: ADMIT Orthopaedic Surgery; ATTEND Orthopaedic Surgery
DX: S32.592A Other specified fracture of left pubis, initial encounter for closed fracture (principal); S32.591A Other specified fracture of right pubis, initial encounter for closed fracture; S50.311A Abrasion of right elbow, initial encounter; W06.XXXA Fall from bed, initial encounter; M88.9 Osteitis deformans of unspecified bone; I10 Essential (primary) hypertension; E78.5 Hyperlipidemia, unspecified; R74.8 Abnormal levels of other serum enzymes; F41.9 Anxiety disorder, unspecified; Z79.899 Other long term (current) drug therapy; Z85.828 Personal history of other malignant neoplasm of skin; Y92.092 Bedroom in other non-institutional residence as the place of occurrence of the external cause; Z87.891 Personal history of nicotine dependence; Y92.009 Unspecified place in unspecified non-institutional (private) residence as the place of occurrence of the external cause; Z98.890 Other specified postprocedural states; Z80.9 Family history of malignant neoplasm, unspecified
CPT/HCPCS: 36415; 70450; 71045; 72100; 72125; 72170; 80053; 85025; 85610; 85730; 90471; 90715; 93005; 96374; 99285